=== PATIENT | female | born 1950 | race Caucasian/White ===

== ENCOUNTER 2017-08-09 09:47 | Emergency (ER) | payer MEDICARE, MEDICAID ==
[~2017-08-09] VITALS: Ht 170.2 cm; Wt 70.0 kg
[2017-08-09 10:11] LABS: BASOPHILS % (AUTO) 0.4 % (0-1); EOSINOPHILS # (AUTO) 0.2 X10'3 (0-0.9); EOSINOPHILS % (AUTO) 2.7 % (0-6); HEMATOCRIT 33.9 % (35.0-45.0); HEMOGLOBIN 11.4 g/dl (12.0-16.0); LYMPHOCYTES # (AUTO) 2.3 X10'3 (1.1-4.8); LYMPHOCYTES % (AUTO) 36.5 % (21-51); MEAN CORPUSCULAR HEMOGLOBIN 28.8 PG (27.0-31.0); MEAN CORPUSCULAR HGB CONC 33.6 % (33.0-36.5); MEAN CORPUSCULAR VOLUME 85.8 FL (78-98); MONOCYTES # (AUTO) 0.5 X10'3 (0-0.9); MONOCYTES % (AUTO) 7.2 % (2-12); NEUTROPHILS # (AUTO) 3.4 X10'3 (1.8-7.7); NEUTROPHILS % (AUTO) 53.2 % (42-75); PLATELET COUNT 261 X10'3 (140-440); RED BLOOD COUNT 3.95 X10'6 (4.20-5.60); RED CELL DISTRIBUTION WIDTH 14.4 % (11.5-14.5); WHITE BLOOD COUNT 6.4 X10'3 (4.5-11.0)
[2017-08-09 10:19] LABS: INR 0.9 INR; PROTHROMBIN TIME 9.6 SECONDS (9.0-12.0)
[2017-08-09 10:25] LABS: ALANINE AMINOTRANSFERASE 61 U/L (12-78); ALBUMIN 3.4 G/DL (3.4-5.0); ALBUMIN/GLOBULIN RATIO 0.6 (1.1-1.5); ALKALINE PHOSPHATASE 87 IU/L (46-116); ANION GAP 6 (8-16); ASPARTATE AMINO TRANSFERASE 34 U/L (10-37); BILIRUBIN,TOTAL 0.3 MG/DL (0.1-1.0); BLOOD UREA NITROGEN 28 MG/DL (7-18); BUN/CREATININE RATIO 21.9 (6.6-38.0); CALCIUM 9.2 MG/DL (8.5-10.1); CHLORIDE 97 MMOL/L (99-107); CREATININE 1.28 MG/DL (0.40-0.90); POTASSIUM 4.8 MMOL/L (3.5-5.1); SODIUM 130 MMOL/L (135-145); TOTAL PROTEIN 9.1 G/DL (6.4-8.2); eGFR 42 ML/MIN
[2017-08-09 10:27] LABS: GLUCOSE 448 MG/DL (70-104)
[2017-08-09 10:53] VITALS: BP 154/92
== END 2017-08-09 10:58 | disposition home or self-care (01) ==
LOC: ER 09:47
DX: E11.65 Type 2 diabetes mellitus with hyperglycemia (principal); I10 Essential (primary) hypertension; E78.00 Pure hypercholesterolemia, unspecified; Z88.8 Allergy status to other drugs, medicaments and biological substances; Z88.6 Allergy status to analgesic agent
CPT/HCPCS: 36415; 80053; 85025; 85610; 93005; 99285

== ENCOUNTER 2017-09-17 09:09 | Emergency (ER) | payer MEDICARE, MEDICAID ==
[~2017-09-17] VITALS: Ht 162.6 cm; Wt 69.7 kg
[2017-09-17 09:53] LABS: BASOPHILS % (AUTO) 0.3 % (0-1); EOSINOPHILS # (AUTO) 0.1 X10'3 (0-0.9); EOSINOPHILS % (AUTO) 1.4 % (0-6); HEMATOCRIT 34.9 % (35.0-45.0); HEMOGLOBIN 11.8 g/dl (12.0-16.0); LYMPHOCYTES # (AUTO) 2.1 X10'3 (1.1-4.8); LYMPHOCYTES % (AUTO) 32.9 % (21-51); MEAN CORPUSCULAR HEMOGLOBIN 28.7 PG (27.0-31.0); MEAN CORPUSCULAR HGB CONC 33.7 % (33.0-36.5); MEAN CORPUSCULAR VOLUME 85.2 FL (78-98); MEAN PLATELET VOLUME 8.2 FL (7.4-10.4); MONOCYTES # (AUTO) 0.4 X10'3 (0-0.9); NEUTROPHILS # (AUTO) 3.8 X10'3 (1.8-7.7); NEUTROPHILS % (AUTO) 59.4 % (42-75); PLATELET COUNT 299 X10'3 (140-440); RED BLOOD COUNT 4.09 X10'6 (4.20-5.60); RED CELL DISTRIBUTION WIDTH 15.5 % (11.5-14.5); WHITE BLOOD COUNT 6.5 X10'3 (4.5-11.0)
[2017-09-17 10:02] LABS: INR 0.9 INR; PROTHROMBIN TIME 9.5 SECONDS (9.0-12.0)
[2017-09-17 10:09] LABS: ALANINE AMINOTRANSFERASE 74 U/L (12-78); ALBUMIN 3.6 G/DL (3.4-5.0); ALBUMIN/GLOBULIN RATIO 0.6 (1.1-1.5); ALKALINE PHOSPHATASE 86 IU/L (46-116); ANION GAP 9 (8-16); ASPARTATE AMINO TRANSFERASE 59 U/L (10-37); BILIRUBIN,TOTAL 0.3 MG/DL (0.1-1.0); BLOOD UREA NITROGEN 22 MG/DL (7-18); BUN/CREATININE RATIO 17.3 (6.6-38.0); CALCIUM 8.9 MG/DL (8.5-10.1); CHLORIDE 98 MMOL/L (99-107); CREATININE 1.27 MG/DL (0.40-0.90); GLUCOSE 354 MG/DL (70-104); MAGNESIUM 1.7 MG/DL (1.5-2.4); SODIUM 132 MMOL/L (135-145); TOTAL CARBON DIOXIDE 24.6 MMOL/L (24-32); TOTAL PROTEIN 9.7 G/DL (6.4-8.2); eGFR 42 ML/MIN
[2017-09-17 10:11] LABS: POTASSIUM 5.2 MMOL/L (3.5-5.1)
[2017-09-17] MEDS ORDERED: insulin regular, human 10 units/0.1 ml syringe SQ ONE (10:50)
[2017-09-17 11:29] VITALS: BP 157/62
== END 2017-09-17 11:30 | disposition home or self-care (01) ==
LOC: ER 09:09
DX: R79.9 Abnormal finding of blood chemistry, unspecified (principal); E78.00 Pure hypercholesterolemia, unspecified; I10 Essential (primary) hypertension; E11.9 Type 2 diabetes mellitus without complications; Z88.6 Allergy status to analgesic agent; Z88.8 Allergy status to other drugs, medicaments and biological substances
CPT/HCPCS: 36415; 80053; 82948; 83735; 85025; 85610; 93005; 96372; 99285; J1815

== ENCOUNTER 2020-05-18 10:58 | Emergency (ER) | payer BC, MEDICAID ==
[~2020-05-18] VITALS: Ht 160 cm; Wt 47.5 kg
[2020-05-18 11:21] VITALS: BP 199/109
[2020-05-18 14:36] LABS: CLARITY,URINE SLIGHTLY CLOUDY (Clear); GLUCOSE, URINE NEGATIVE (Neg); KETONES,URINE TRACE mg/dl (Neg); LEUKOCYTE ESTERASE ,URINE NEGATIVE (Neg); OCCULT BLOOD,URINE LARGE (Neg); PH,URINE 5.5 (4.8-8.0); PROTEIN,URINE >=300 mg/dl (Neg); UROBILINOGEN,URINE 0.2 E.U/dL (0.2-1.0)
[2020-05-18 14:41] LABS: COLOR,URINE AMBER (Yellow); UA COLLECTION TYPE CLN CATCH MIDSTREAM
[2020-05-18 14:42] LABS: NITRITES, URINE NEGATIVE (Neg)
[2020-05-18 14:47] LABS: FINE GRANULAR CAST 0-3 /LPF (NEGATIVE)
[2020-05-18 14:49] LABS: RBC,URINE 20-50 /HPF (0-2)
[2020-05-18 14:50] LABS: BACTERIA,URINE FEW /HPF (Neg); SQUAMOUS EPITHELIAL CELL,UR MANY /LPF (FEW)
[2020-05-18 14:51] LABS: MUCUS STRANDS FEW /LPF (Neg); RENAL CELLS, URINE FEW /HPF; TRANSITIONAL EPI CELLS,URINE FEW /HPF
== END 2020-05-18 17:06 | disposition home or self-care (01) ==
LOC: ER 10:59
DX: N93.9 Abnormal uterine and vaginal bleeding, unspecified (principal); E78.00 Pure hypercholesterolemia, unspecified; I10 Essential (primary) hypertension; E11.9 Type 2 diabetes mellitus without complications; Z88.6 Allergy status to analgesic agent
CPT/HCPCS: 81001; 99284

== ENCOUNTER 2020-07-01 10:07 | Day surgery (SDC) | payer BC, MEDICAID ==
[2020-06-24 16:02] LABS: BASOPHILS # (AUTO) 0.1 X10'3 (0-0.2); BASOPHILS % (AUTO) 0.7 % (0-1); EOSINOPHILS # (AUTO) 0.2 X10'3 (0-0.9); EOSINOPHILS % (AUTO) 1.8 % (0-6); LYMPHOCYTES # (AUTO) 4.3 X10'3 (1.1-4.8); LYMPHOCYTES % (AUTO) 43.8 % (21-51); MEAN CORPUSCULAR HEMOGLOBIN 29.9 PG (27.0-31.0); MEAN CORPUSCULAR HGB CONC 32.6 g/dL (33.0-36.5); MEAN CORPUSCULAR VOLUME 91.6 FL (78-98); MEAN PLATELET VOLUME 7.3 FL (7.4-10.4); MONOCYTES # (AUTO) 0.6 X10'3 (0-0.9); MONOCYTES % (AUTO) 6.5 % (2-12); NEUTROPHILS # (AUTO) 4.6 X10'3 (1.8-7.7); NEUTROPHILS % (AUTO) 47.2 % (42-75); PRE OP HEMATOCRIT 40.6 % (35.0-45.0); PRE OP HEMOGLOBIN 13.3 g/dL (12.0-16.0); PRE OP PLATELET COUNT 402 X10'3 (140-440); RED BLOOD COUNT 4.44 X10'6 (4.20-5.60); RED CELL DISTRIBUTION WIDTH 14.5 % (11.5-14.5)
[2020-06-24 16:13] LABS: ALBUMIN 3.7 G/DL (3.4-5.0); ALBUMIN/GLOBULIN RATIO 0.8 (1.1-1.5); ALKALINE PHOSPHATASE 54 IU/L (46-116); BLOOD UREA NITROGEN 12 MG/DL (7-18); BUN/CREATININE RATIO 14.3 (6.6-38.0); CALCIUM 9.5 MG/DL (8.5-10.1); CHLORIDE 102 MMOL/L (99-107); CREATININE 0.84 MG/DL (0.40-0.90); PRE OP ALT 33 U/L (30-65); PRE OP ANION GAP 4 (8-16); PRE OP AST 25 U/L (10-37); PRE OP BILIRUB, TOTAL 0.3 MG/DL (0.0-1.0); PRE OP GLUCOSE 166 MG/DL (70-104); PRE OP POTASSIUM 4.8 MMOL/L (3.4-5.1); PRE OP SODIUM 139 MMOL/L (135-145); TOTAL CARBON DIOXIDE 32.7 MMOL/L (24-32); TOTAL PROTEIN 8.5 G/DL (6.4-8.2); eGFR 67 ML/MIN
[2020-07-01] VITALS (7 sets, daily range): BP systolic 170–223; BP diastolic 71–94
[~2020-07-01] VITALS: Ht 160 cm; Wt 48.6 kg
[~2020-07-01 10:07] MED LIST: ATOR10TA70 PO; BUPR100T16 PO; DOCUMENT DATE & TIME OF BETA-BLOCKER PO ONE; GABA-530 PO; LISI10TA27 PO; METF-950 PO; METO-384 PO; PRAM0.129 PO; PRAM0.258 PO; TRAZ-251 PO; VANCOMYCIN INJ 1000 MG in NORMAL SALINE 250ml IV.SOLN IV ONE; cefazolin/dext.iso 2gm/100ml 100 ML IV ONE; famotidine 20mg tablet PO ONE; ringers solution, lacted 1,000 ML IV SCH
[2020-07-01] MEDS ORDERED: BUPIVAcaine/PF 2.5 mg/ml (0.25%) 30ml vial ONE (11:50)
[2020-07-01] MEDS ORDERED: methylPREDNISolone sod succ 125mg/2ml vial ONE (11:50)
[2020-07-01] MEDS ORDERED: fentaNYL/PF 50MCG/1 ML 2ML syringe ONE (12:16)
[2020-07-01] MEDS ORDERED: midazolam 1 mg/ML 2ml injection ONE (12:17)
[2020-07-01] MEDS ORDERED: proCHLORperazine 10 MG/2 ml inj IV PRN (12:30)
[2020-07-01] MEDS ORDERED: morphine 2 MG/ML inj. syringe IV PRN (12:30)
[2020-07-01] MEDS ORDERED: labetalol 20mg/4ml (5mg/ml) syringe IV PRN (12:30)
[2020-07-01] MEDS ORDERED: ondansetron/PF 4mg/2ml inj IV PRN (12:30)
[2020-07-01] MEDS ORDERED: acetaminophen 1,000mg/100ml IV 100 ML IV PRN (12:30)
[2020-07-01] MEDS ORDERED: morphine 4 MG/ML inj SYRINge IV PRN (12:30)
[2020-07-01] MEDS ORDERED: meperidine/PF 25mg/ml syringe IV PRN ×3 (12:30)
[2020-07-01] MEDS ORDERED: ringers solution, lacted 1,000 ML IV SCH (12:30)
[2020-07-01] MEDS ORDERED: hydrALAZINE 20mg/ml inj. IV PRN (12:30)
[2020-07-01] MEDS ORDERED: propofol inj 20 ML IV ONE (13:09)
--- NOTE | 2020-07-01 13:15 | NUR ---
Received from OR via [facility] , accompanied by Anesthesiologist MARIBELL and report given by Anesthesiolgist. PATIENT WITH BIAS WRAP DRESSING TO RIGHT WRIST WITH + CAP REFILL AND MOVEMENT OF FINGERS AND THUMB. VSS. DENIES PAIN. 20G PIV IN LEFT UE RUNNING LR AT 100. Addendum: 07/01/20 at 1329 by Dusty Cuevas RN, RN Amended: Links added.
--- NOTE | 2020-07-01 13:40 | NUR ---
UNABLE FOR LAST 10 MINUTES [facility] ERROR PREVENTING ME FROM GETTING MEDS. CURRENT BP OF 210/83. Addendum: 07/01/20 at 1343 by Dusty Cuevas RN, RN Amended: Links added.
--- NOTE | 2020-07-01 14:05 | NUR ---
ALL DISCHARGE CRITERIA HAS BEEN MET. VSS, PAIN AT A TOLERABLE LEVEL, VOIDING AND ABLE TO SAFELY AMBULATE AND TRANSFER SELF. IV TAKEN OUT WITHOUT ANY COMPLICATIONS. ALL DISCHARGE INSTRUCTIONS COVERED WITH PATIENT AND ALL QUESTIONS ANSWERED. PATIENT TAKEN OUT VIA WHEELCHAIR TO PERSONAL VEHICLE WHERE FAMILY/FRIEND DROVE PATIENT HOME. DRESSED, VOIDED AND WAS ABLE TO AMBULATE. VSS. DRESSINGS CDI. ENCOURAGED TO TAKE PO MEDS ONCE SHE GETS HOME. Addendum: 07/01/20 at 1420 by Dusty Cuevas RN, RN Amended: Links added.
== END 2020-07-01 14:05 | disposition home or self-care (01) ==
LOC: PAS 10:07
PROVIDERS: ATTEND Orthopaedic Surgery
DX: G56.01 Carpal tunnel syndrome, right upper limb (principal); G56.21 Lesion of ulnar nerve, right upper limb; I10 Essential (primary) hypertension; F17.210 Nicotine dependence, cigarettes, uncomplicated; F32.9 Major depressive disorder, single episode, unspecified; E78.5 Hyperlipidemia, unspecified; B19.20 Unspecified viral hepatitis C without hepatic coma; F17.228 Nicotine dependence, chewing tobacco, with other nicotine-induced disorders; G25.81 Restless legs syndrome; E11.40 Type 2 diabetes mellitus with diabetic neuropathy, unspecified; E11.59 Type 2 diabetes mellitus with other circulatory complications; Z20.822 Contact with and (suspected) exposure to COVID-19; Z90.710 Acquired absence of both cervix and uterus; Z98.890 Other specified postprocedural states; Z88.8 Allergy status to other drugs, medicaments and biological substances; Z91.040 Latex allergy status; Z79.899 Other long term (current) drug therapy; Z79.84 Long term (current) use of oral hypoglycemic drugs
CPT/HCPCS: 36415; 64719; 64721; 80053; 82948; 85025; 93005; A6222; J0360; J2250; J2704; J2930; J3010; J3370; J3490; U0003; A4215; A4565; A7000; J7120

== ENCOUNTER 2021-08-18 13:53 | Observation (INO) | payer BC, MEDICAID ==
[~2021-08-18] VITALS: Ht 160 cm; Wt 48.2 kg
[~2021-08-18 13:53] MED LIST changes: +BUPR-122 PO; -BUPR100T16 PO; -DOCUMENT DATE & TIME OF BETA-BLOCKER PO ONE; +METF-1203 PO; -METF-950 PO; -VANCOMYCIN INJ 1000 MG in NORMAL SALINE 250ml IV.SOLN IV ONE; -cefazolin/dext.iso 2gm/100ml 100 ML IV ONE; -famotidine 20mg tablet PO ONE; -ringers solution, lacted 1,000 ML IV SCH
[2021-08-18] MEDS ORDERED: normal saline 1000ML IV soln IV ONE (14:30)
[2021-08-18 14:39] LABS: BASOPHILS # (AUTO) 0.1 X10'3 (0-0.2); BASOPHILS % (AUTO) 0.4 % (0-1); EOSINOPHILS # (AUTO) 0.2 X10'3 (0-0.9); EOSINOPHILS % (AUTO) 1.2 % (0-6); HEMATOCRIT 38.2 % (35.0-45.0); LYMPHOCYTES # (AUTO) 3.7 X10'3 (1.1-4.8); LYMPHOCYTES % (AUTO) 22.6 % (21-51); MEAN CORPUSCULAR HEMOGLOBIN 31.2 PG (27.0-31.0); MEAN CORPUSCULAR HGB CONC 34.1 g/dL (33.0-36.5); MEAN CORPUSCULAR VOLUME 91.3 FL (78-98); MEAN PLATELET VOLUME 6.9 FL (7.4-10.4); MONOCYTES # (AUTO) 0.9 X10'3 (0-0.9); MONOCYTES % (AUTO) 5.3 % (2-12); NEUTROPHILS # (AUTO) 11.6 X10'3 (1.8-7.7); NEUTROPHILS % (AUTO) 70.5 % (42-75); PLATELET COUNT 489 X10'3 (140-440); RED BLOOD COUNT 4.18 X10'6 (4.20-5.60); RED CELL DISTRIBUTION WIDTH 14.2 % (11.5-14.5); WHITE BLOOD COUNT 16.5 X10'3 (4.5-11.0)
[2021-08-18 14:47] LABS: ALANINE AMINOTRANSFERASE 15 U/L (12-78); ALBUMIN 4.1 G/DL (3.4-5.0); ALBUMIN/GLOBULIN RATIO 0.8 (1.1-1.5); ALKALINE PHOSPHATASE 58 IU/L (46-116); ANION GAP 10 (8-16); ASPARTATE AMINO TRANSFERASE 17 U/L (10-37); BILIRUBIN,TOTAL 0.3 MG/DL (0.1-1.0); BLOOD UREA NITROGEN 24 MG/DL (7-18); BUN/CREATININE RATIO 15.8 (6.6-38.0); CALCIUM 9.6 MG/DL (8.5-10.1); CHLORIDE 98 MMOL/L (99-107); CREATININE 1.52 MG/DL (0.40-0.90); GLUCOSE 200 MG/DL (70-104); POTASSIUM 4.5 MMOL/L (3.5-5.1); SODIUM 132 MMOL/L (135-145); TOTAL CARBON DIOXIDE 23.7 MMOL/L (24-32); eGFR 34 ML/MIN
[2021-08-18] MEDS ORDERED: CefTRIAXone 2gm/NS 100ml IVPB 100 ML IV ONE (15:05)
[2021-08-18 15:12] LABS: CLARITY,URINE SLIGHTLY CLOUDY (Clear); COLOR,URINE YELLOW (Yellow); GLUCOSE, URINE NEGATIVE (Neg); KETONES,URINE TRACE mg/dl (Neg); LEUKOCYTE ESTERASE ,URINE NEGATIVE (Neg); NITRITES, URINE NEGATIVE (Neg); OCCULT BLOOD,URINE TRACE-LYSED (Neg); PROTEIN,URINE 100 mg/dl (Neg); UROBILINOGEN,URINE 0.2 E.U/dL (0.2-1.0)
[2021-08-18 15:18] LABS: UA COLLECTION TYPE NON-SPECIFIED; URINE AMPHETAMINE SCREEN NEGATIVE (Neg); URINE BARBITUATE SCREEN NEGATIVE (Neg); URINE BENZODIAZEPINES SCREEN NEGATIVE (Neg); URINE CANNABINOID SCREEN POSITIVE (Neg); URINE COCAINE SCREEN NEGATIVE (Neg); URINE METHADONE SCREEN NEGATIVE (Neg); URINE OPIATE SCREEN NEGATIVE (Neg); URINE PHENCYCLIDINE SCREEN NEGATIVE (Neg)
[2021-08-18 15:26] LABS: LACTIC SEPSIS 2.7 MMOL/L (0.4-2.0)
[2021-08-18 15:27] LABS: SQUAMOUS EPITHELIAL CELL,UR FEW /LPF (FEW)
[2021-08-18 15:30] LABS: BACTERIA,URINE FEW /HPF (Neg)
[2021-08-18] MEDS ORDERED: methylPREDNISolone sod succ 125mg/2ml vial IV ONE (15:30)
[2021-08-18] MEDS ORDERED: ipratropium/albuterol 3ml nebule NEB ONE (15:30)
[2021-08-18 15:33] LABS: WBC,URINE 0-4 /HPF (0-4)
[2021-08-18 15:36] LABS: HYALINE CASTS 0-3 /LPF (NEGATIVE)
[2021-08-18 15:38] LABS: AMMONIA < 10 UMOL/L (11-32)
[2021-08-18 15:47] LABS: MUCUS STRANDS FEW /LPF (Neg); RBC,URINE 0-2 /HPF (0-2); TRANSITIONAL EPI CELLS,URINE FEW /HPF
[2021-08-18] MEDS ORDERED: acetaminophen 325mg tablet PO PRN (16:20)
[2021-08-18] MEDS ORDERED: POTASSIUM BICARB 20meq eff tab 20 MEQ TABLET.EFF PO PRN ×2 (16:20)
[2021-08-18] MEDS ORDERED: magnesium 2GM in 50ml NS 50 ML IV PRN (16:20)
[2021-08-18] MEDS ORDERED: magnesium hydroxide 30ml (MOM) UD suspension PO PRN (16:20)
[2021-08-18] MEDS ORDERED: magnesium Cl slow-release 64mg tablet PO PRN (16:20)
[2021-08-18] MEDS ORDERED: potassium CL 10mEq/100ml bag 100 ML IV PRN (16:20)
[2021-08-18] MEDS ORDERED: magnesium 4gm in 100ml NS 100 ML IV PRN (16:20)
[2021-08-18] MEDS ORDERED: mag hydrox/Alum hydrox/simeth 30ml oral suspension PO PRN (16:20)
[2021-08-18] MEDS ORDERED: ondansetron/PF 4mg/2ml inj IV PRN (16:20)
[2021-08-18] MEDS: normal saline 1000ml 1,000 ML IV SCH ×2 (16:53→22:22)
[2021-08-18 17:17] LABS: MAGNESIUM 1.9 MG/DL (1.5-2.4); POTASSIUM 4.5 MMOL/L (3.5-5.1)
[2021-08-18] MEDS ORDERED: insulin Lispro (HumaLOG) vial - multi-dose SQ SCH (19:55)
[2021-08-18] MEDS ORDERED: dextrose 50%-water 50ml dispensing syringe IV PRN ×2 (19:55)
[2021-08-18] MEDS ORDERED: ROPI2TAB7 PO (19:55)
[2021-08-18] MEDS ORDERED: DEXTROSE 15 GM of carb/4 tabs (each vial/BOTTLE has 4 tablets) PO PRN ×2 (19:55)
[2021-08-18] MEDS ORDERED: glucagon, human recombinant 1mg kit SUBCUT PRN (19:55)
[2021-08-18] MEDS ORDERED: CHLO25TA10 PO (19:55)
[2021-08-18] MEDS: K and/or MAG REPLACEMENT MC SCH (20:00)
[2021-08-18 20:27] LABS: HEMOGLOBIN A1C 6.4 % (4.5-6.2)
[2021-08-18] MEDS: docusate sod 100mg capsule PO SCH (20:28)
[2021-08-18] MEDS ORDERED: ROPINIRole 1mg tablet PO SCH (21:00)
[2021-08-18] MEDS ORDERED: insulin glargine (Lantus) pen - multi-dose SQ SCH (21:00)
[2021-08-18] MEDS ORDERED: LORazepam 1 MG tablet PO ONE (22:40)
[2021-08-19 02:19] LABS: BASOPHILS % (AUTO) 0.1 % (0-1); EOSINOPHILS % (AUTO) 0 % (0-6); HEMATOCRIT 31.2 % (35.0-45.0); HEMOGLOBIN 10.7 g/dl (12.0-16.0); LYMPHOCYTES # (AUTO) 0.8 X10'3 (1.1-4.8); LYMPHOCYTES % (AUTO) 11.6 % (21-51); MEAN CORPUSCULAR HEMOGLOBIN 30.8 PG (27.0-31.0); MEAN CORPUSCULAR HGB CONC 34.4 g/dL (33.0-36.5); MEAN CORPUSCULAR VOLUME 89.5 FL (78-98); MONOCYTES # (AUTO) 0.1 X10'3 (0-0.9); MONOCYTES % (AUTO) 1.2 % (2-12); NEUTROPHILS # (AUTO) 6.2 X10'3 (1.8-7.7); NEUTROPHILS % (AUTO) 87.1 % (42-75); PLATELET COUNT 365 X10'3 (140-440); RED BLOOD COUNT 3.49 X10'6 (4.20-5.60); RED CELL DISTRIBUTION WIDTH 13.8 % (11.5-14.5); WHITE BLOOD COUNT 7.1 X10'3 (4.5-11.0)
[2021-08-19 02:37] LABS: ALBUMIN 3.3 G/DL (3.4-5.0); ANION GAP 11 (8-16); BLOOD UREA NITROGEN 22 MG/DL (7-18); CALCIUM 8.5 MG/DL (8.5-10.1); CHLORIDE 101 MMOL/L (99-107); GLUCOSE 200 MG/DL (70-104); MAGNESIUM 1.7 MG/DL (1.5-2.4); POTASSIUM 4.1 MMOL/L (3.5-5.1); SODIUM 132 MMOL/L (135-145); TOTAL CARBON DIOXIDE 20.5 MMOL/L (24-32); eGFR 49 ML/MIN
[2021-08-19] MEDS: docusate sod 100mg capsule PO SCH (07:53)
[2021-08-19] MEDS: K and/or MAG REPLACEMENT MC SCH (07:53)
[2021-08-19] MEDS ORDERED: enoxaparin 40mg/0.4ml syringe SUBCUT SCH (08:00)
[2021-08-19] MEDS ORDERED: AMLO5TAB4 PO (10:43)
[2021-08-19 12:10] VITALS: BP 164/68
[2021-08-19] MEDS ORDERED: gabapentin 100mg capsule PO SCH (13:00)
[2021-08-19] MEDS ORDERED: metoprolol succinate 25mg (24-HOUR) SR. Tablet PO SCH (20:00)
[2021-08-19] MEDS ORDERED: lisinopril 10 MG tablet PO SCH (21:00)
[2021-08-19] MEDS ORDERED: traZODone 50mg tablet PO SCH (21:00)
[2021-08-19] MEDS ORDERED: ROPINIRole 1mg tablet PO SCH (21:00)
[2021-08-19] MEDS ORDERED: atorvastatin 10mg tablet PO SCH (21:00)
[2021-08-20] MEDS ORDERED: chlorthalidone 25mg tablet PO SCH (08:00)
== END 2021-08-19 16:00 | disposition home or self-care (01) ==
LOC: ER 13:53 → ED HOLD 16:21 → INTOOBSV 16:21
PROVIDERS: ADMIT Family Medicine; ATTEND Family Medicine
DX: E86.0 Dehydration (principal); R55 Syncope and collapse; N17.0 Acute kidney failure with tubular necrosis; J44.9 Chronic obstructive pulmonary disease, unspecified; E11.9 Type 2 diabetes mellitus without complications; D72.829 Elevated white blood cell count, unspecified; E87.2 Acidosis; G89.4 Chronic pain syndrome; I10 Essential (primary) hypertension; E78.00 Pure hypercholesterolemia, unspecified; T38.3X5A Adverse effect of insulin and oral hypoglycemic [antidiabetic] drugs, initial encounter; F17.210 Nicotine dependence, cigarettes, uncomplicated; Z91.040 Latex allergy status; Z90.710 Acquired absence of both cervix and uterus; Z79.899 Other long term (current) drug therapy
CPT/HCPCS: 36415; 70450; 71045; 80048; 80053; 80305; 80320; 81001; 82140; 82948; 83036; 83605; 83735; 83880; 84132; 84145; 84484; 85025; 87040; 93306; 94640; 94760; 96361; 96365; 96366; 96372; 96375; 99285; G0378; J0696; J1650; J2930; J7030; J1815